=== PATIENT | female | born 1965 | race Caucasian/White ===

== ENCOUNTER 2018-01-07 12:53 | Day surgery (SDC) | payer OTHER ==
[2018-01-06 14:51] VITALS: BMI 23.2
[2018-01-07 14:04] VITALS: TEMP 97.8
--- NOTE | 2018-01-07 14:18 | PROC ---
Endoscopy Procedure Endoscopy procedure completed. Please see scanned procedure report.
[2018-01-07 14:45] VITALS: BP 110/65; PULSE 72
== END 2018-01-07 14:48 | disposition home or self-care (01) ==
LOC: JASU-ENDO 12:53
PROVIDERS: ATTEND Internal Medicine Gastroenterology
PROC: 0DJD8ZZ Inspection of Lower Intestinal Tract, Via Natural or Artificial Opening Endoscopic (ICD-10-PCS; principal; 2018-01-07 12:45)
DX: Z12.11 Encounter for screening for malignant neoplasm of colon (principal); K64.8 Other hemorrhoids